=== PATIENT | male | born 2005 | race Two or more races ===

== ENCOUNTER 2024-09-09 11:58 | Emergency (ER) | payer MEDICAID, SELFPAY ==
[2024-09-09 12:00] VITALS: BMI 22.4
[2024-09-09 12:15] VITALS: BP 121/64; PULSE 58; RESP 16; TEMP 36.8; O2SAT 97
--- NOTE | 2024-09-09 12:42 | PD.EDRME ---
Rapid Medical Screening Exam E Arrival date/time: 09/09/24 11:58 19-year-old male presents the emergency department today complaints of injury to his left eye on Friday patient reports blurry vision from his left eye now Chief Complaint: Eye Problems Vital signs: Vital Signs Temperature 98.3 F 09/09/24 12:15 Pulse Rate 58 L 09/09/24 12:15 Respiratory Rate 16 09/09/24 12:15 Blood Pressure 121/64 09/09/24 12:15 Pulse Oximetry (%) 97 09/09/24 12:15 Oxygen Delivery Method Room Air 09/09/24 12:15
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
[2024-09-09] MEDS: TETRACAINE PF OP SOL 0.5% 4 ML DRPETTE 1 DROP LEFT EYE (14:20)
[2024-09-09] MEDS: DEXAMETHASONE LEFT EYE (14:21)
[2024-09-09] MEDS: TOBRAMYCIN LEFT EYE (14:21)
== END 2024-09-09 14:47 | disposition left against medical advice (07) ==
PROVIDERS: Emergency Provider Emergency Medicine; PCP Nurse Practitioner Family
DX: S05.02XA Injury of conjunctiva and corneal abrasion without foreign body, left eye, initial encounter (principal); H53.8 Other visual disturbances; W22.8XXA Striking against or struck by other objects, initial encounter; Z53.29 Procedure and treatment not carried out because of patient's decision for other reasons
CPT/HCPCS: 99281